=== PATIENT | male | born 2000 | race Caucasian/White ===

== ENCOUNTER 2025-02-04 18:47 | Inpatient (IN) | payer OTHER ==
[~2025-02-04] VITALS: Ht 188 cm; Wt 135.3 kg
[2025-02-04] MEDS ORDERED: ACETAMINOPHEN 650MG SUPP PR PRN (19:00)
[2025-02-04] MEDS ORDERED: VANCOMYCIN 1G PREMIX 200 ML IV ONE (19:00)
[2025-02-04] MEDS: SODIUM CHLORIDE 0.9% (SEPSIS BOLUS) IV ONE (19:08)
[2025-02-04] MEDS: PIPERACILLIN/TAZO 3.375G/50ML 50 ML IV ONE (19:09)
[2025-02-04] MEDS: NOREPINEPHRINE 8MG/250ML PMX 250 ML IV SCH (19:10)
[2025-02-04 19:15] LABS: BASOPHILS % 0.2 % (0.0-2.0); EOSINOPHILS % 0.4 % (0.0-5.0); HEMATOCRIT. 43.4 % (42.0-52.0); HEMOGLOBIN. 14.1 g/dL (14.0-18.0); LYMPHOCYTES % 24.8 % (20.0-50.0); MEAN PLATELET VOLUME 7.8 fl (7.4-10.4); MONOCYTES % 3.2 % (2.0-8.0); NEUTROPHILS % 71.4 % (40.0-76.0); PLATELET 295 x1000/uL (130-400); RED BLOOD CELL COUNT 5.23 mill/uL (4.7-6.1); RED CELL DISTRIBUTION WIDTH 15.7 % (11.6-14.6)
[2025-02-04 19:19] VITALS: PULSE 86; RESP 20; O2SAT 95
[2025-02-04 19:34] LABS: CREATININE 1.5 mg/dL (0.6-1.3); UREA NITROGEN BLOOD 14 mg/dL (9-23)
[2025-02-04 19:35] LABS: ETHANOL BLOOD < 10 mg/dL (<10)
[2025-02-04 19:36] LABS: ASPARTATE AMINOTRANSFERASE 702 IU/L (<34); BILIRUBIN DIRECT 0.1 mg/dL (<=3.0); BILIRUBIN TOTAL 0.4 mg/dL (0.1-1.0); PHOSPHORUS 7.1 mg/dL (2.5-4.9)
[2025-02-04 19:37] LABS: PROTEIN TOTAL 6.3 g/dL (6.0-8.3)
[2025-02-04 19:56] LABS: INR 1.0
[2025-02-04 20:46] VITALS: PULSE 86; RESP 22; O2SAT 98
[2025-02-04] MEDS ORDERED: NOREPINEPHRINE 32 MG in DEXT 5% WATER 218 ML IV PRN (21:15)
[2025-02-04] MEDS ORDERED: PHENYLEPHRINE 100 MG in DEXT 5% WATER 240 ML IV PRN (21:15)
[2025-02-04] MEDS: VANCOMYCIN 2GM PMX (XELLIA) 400 ML IV SCH (22:02)
[2025-02-04 22:17] VITALS: RESP 18
[2025-02-04 22:37] LABS: BG BASE EXCESS -8.2 mmol/L (-2.0-3.0); BG CARBOXYHEMOGLOBIN 0.3 % (0.5-1.5); BG DEOXYHEMOGLOBIN 0.2 % (0.0-5.0); BG FRACTION INSPIRED OXYGEN 100; BG HCO3 ACT 16.4 mmol/L (21.0-28.0); BG METHEMOGLOBIN 0.2 % (0.5-1.5); BG OXYGEN SATURATION 99.8 % (94.0-98.0); BG OXYHEMOGLOBIN 99.3 % (94.0-98.0); BG PCO2 31.9 mmHg (35.0-48.0); BG PEEP (cmH2O) 5.0 cmH2O; BG PH 7.328 (7.350-7.450); BG PO2 365.1 mmHg (83.0-108.0); BG SAMPLE SITE RIGHT RADIAL; BG TIDAL VOLUME(mL) 500.0 mL; BG TOTAL HEMOGLOBIN 16.8 g/dL (13.5-17.5); BG VENT MODE VENT - AC; BG VENT RATE 16.0 set
[2025-02-04 23:00] VITALS: BP 101/79; PULSE 115; RESP 30; TEMP 38.4
[2025-02-04 23:13] LABS: TROPONIN I HIGH SENSITIVITY 36 ng/L (3.0-53)
[2025-02-04] MEDS ORDERED: MIDAZOLAM 100MG/100ML PMX 100 ML IV PRN (23:15)
[2025-02-04] MEDS ORDERED: FENTANYL 2500MCG/250ML PMX 250 ML IV ONE (23:15)
[2025-02-04] MEDS ORDERED: IOHEXOL-350 100 ML BOTTLE ONE (23:27)
[2025-02-04 23:30] VITALS: BP 130/85; PULSE 130; RESP 28; TEMP 38.8
[2025-02-04] MEDS: ACETAMINOPHEN 650MG/20.3ML UDC NG PRN (23:42)
[2025-02-04 23:45] VITALS: BP 129/91; PULSE 121; RESP 29; TEMP 38.8
[2025-02-04] MEDS: MIDAZOLAM 100MG/100ML PMX 100 ML IV PRN (23:57)
[2025-02-04] MEDS: FENTANYL CITRATE 2,500 MCG in SODIUM CHLORIDE 0.9% 200 ML IV PRN (23:59)
[2025-02-05] VITALS (87 sets, daily range): BP systolic 109–190; BP diastolic 65–116; PULSE 101–141; RESP 13–39; TEMP 37.3–38.8644; O2SAT 78–100
[2025-02-05] MEDS: SODIUM CHLORIDE 0.9% 1,000 ML IV SCH (00:01)
[2025-02-05] MEDS: PHENOBARBITAL SODIUM 65MG/ML 1ML IV NR (01:41)
[2025-02-05] MEDS: LEVETIRACETAM 1500MG PREMIX 100 ML IV NR (01:45)
[2025-02-05] MEDS: VECURONIUM BROMIDE 10 MG/VIAL IV NR (02:11)
[2025-02-05] MEDS: PHENOBARBITAL SODIUM 130MG/ML 1ML IV NR (04:42)
[2025-02-05] MEDS: PROPOFOL 10MG/ML 100ML 100 ML IV PRN ×2 (05:00→17:18)
[2025-02-05 05:42] LABS: BASOPHILS % 0.1 % (0.0-2.0); EOSINOPHILS % 0.0 % (0.0-5.0); HEMATOCRIT. 46.2 % (42.0-52.0); HEMOGLOBIN. 14.9 g/dL (14.0-18.0); LYMPHOCYTES % 7.7 % (20.0-50.0); MEAN PLATELET VOLUME 7.9 fl (7.4-10.4); MONOCYTES % 5.4 % (2.0-8.0); NEUTROPHILS % 86.8 % (40.0-76.0); PLATELET 290 x1000/uL (130-400); RED BLOOD CELL COUNT 5.58 mill/uL (4.7-6.1); RED CELL DISTRIBUTION WIDTH 16.3 % (11.6-14.6)
[2025-02-05 05:54] LABS: CREATININE 1.2 mg/dL (0.6-1.3)
[2025-02-05 05:55] LABS: UREA NITROGEN BLOOD 10 mg/dL (9-23)
[2025-02-05] MEDS: PIPERACILLIN/TAZO 3.375G/50ML 50 ML IV SCH (07:54)
[2025-02-05] MEDS ORDERED: DEXTROSE 50% WATER 50ML SYRINGE IV PRN (08:00)
[2025-02-05] MEDS: PANTOPRAZOLE 40MG DR TABLET PO SCH (08:00)
[2025-02-05] MEDS ORDERED: METH4TAB17 PO (08:03)
[2025-02-05] MEDS ORDERED: HYDR-4009 MT (08:05)
[2025-02-05] MEDS ORDERED: CEPH500C2 PO (08:08)
[2025-02-05] MEDS ORDERED: DOCU100T PO (08:08)
[2025-02-05] MEDS ORDERED: CYCL25PO15 MT (08:08)
[2025-02-05] MEDS: BLOOD SUGAR DIAGNOSTIC STRIP TEST SCH (08:29)
[2025-02-05] MEDS: LEVETIRACETAM 1000MG PREMIX 100 ML IV SCH (08:44)
[2025-02-05] MEDS: INSULIN LISPRO 100 UNITS/ML SUBCUT SCH (08:45)
[2025-02-05 08:55] LABS: BG BASE EXCESS -4.6 mmol/L (-2.0-3.0); BG CARBOXYHEMOGLOBIN 0.6 % (0.5-1.5); BG DEOXYHEMOGLOBIN 0.6 % (0.0-5.0); BG FRACTION INSPIRED OXYGEN 70; BG HCO3 ACT 20.9 mmol/L (21.0-28.0); BG METHEMOGLOBIN 0.3 % (0.5-1.5); BG OXYGEN SATURATION 99.4 % (94.0-98.0); BG OXYHEMOGLOBIN 98.5 % (94.0-98.0); BG PCO2 40.3 mmHg (35.0-48.0); BG PEEP (cmH2O) 8.0 cmH2O; BG PH 7.333 (7.350-7.450); BG PO2 184.6 mmHg (83.0-108.0); BG SAMPLE SITE RIGHT RADIAL; BG TIDAL VOLUME(mL) 500.0 mL; BG TOTAL HEMOGLOBIN 15.2 g/dL (13.5-17.5); BG VENT MODE VENT - AC; BG VENT RATE 18.0 set
[2025-02-05] MEDS ORDERED: VANCOMYCIN 2GM PMX (XELLIA) 400 ML IV SCH (09:00)
[2025-02-05 10:07] LABS: CREATININE 1.2 mg/dL (0.6-1.3); ETHANOL BLOOD < 10 mg/dL (<10); UREA NITROGEN BLOOD 11 mg/dL (9-23)
[2025-02-05 10:09] LABS: PHOSPHORUS 3.8 mg/dL (2.5-4.9)
[2025-02-05] MEDS: VANCOMYCIN 2GM PMX (XELLIA) 400 ML IV SCH (13:04)
[2025-02-05] MEDS: HYDRALAZINE 20MG/ML VIAL IV PRN (17:19)
[2025-02-05 17:29] LABS: CLARITY URINE TURBID (CLEAR); COLOR URINE YELLOW (YELLOW); GLUCOSE URINE NEGATIVE (NEGATIVE); KETONES URINE NEGATIVE (NEGATIVE); LEUKOCYTE ESTERASE URINE NEGATIVE (NEGATIVE); NITRITE URINE NEGATIVE (NEGATIVE); OCCULT BLOOD URINE 1+ (NEGATIVE); PH URINE 5.0 (4.5-8.0); PROTEIN URINE TRACE (NEGATIVE); SPECIFIC GRAVITY URINE 1.025 (1.005-1.030); UROBILINOGEN URINE 0.2 E.U./dL (0.2-1.0)
[2025-02-05 17:39] LABS: *AMPHETAMINES SCREEN URINE NEGATIVE (NEGATIVE); *BARBITURATES SCREEN URINE PRESUMPTIVE POSITIVE (NEGATIVE); *BENZODIAZEPINES SCREEN URINE PRESUMPTIVE POSITIVE (NEGATIVE); *COCAINE SCREEN URINE NEGATIVE (NEGATIVE); CANNABINOID URINE SCREEN NEGATIVE (NEGATIVE); ECSTASY MDMA SCREEN URINE NEGATIVE (NEGATIVE); METHADONE URINE SCREEN NEGATIVE (NEGATIVE); OPIATES URINE SCREEN NEGATIVE (NEGATIVE); PHENCYCLIDINE URINE SCREEN NEGATIVE (NEGATIVE)
[2025-02-05 18:12] LABS: CREATININE 1.1 mg/dL (0.6-1.3); UREA NITROGEN BLOOD 7 mg/dL (9-23)
[2025-02-05 18:17] LABS: URIC ACID CRYSTALS URINE 2+ /lpf; WBC URINE NONE SEEN /hpf (0-2)
[2025-02-05 18:18] LABS: BACTERIA URINE NONE SEEN; RBC URINE 0-2 /hpf (0-2); SQUAMOUS EPITHELIAL CELL URINE RARE /lpf (RARE/1+)
[2025-02-05] MEDS: ACETAMINOPHEN 325MG TABLET PO PRN (18:25)
[2025-02-05] MEDS: HYDROMORPHONE HCL/PF 2MG/ML INJ IV PRN (20:40)
[2025-02-05] MEDS ORDERED: NALOXONE HCL 0.4MG/ML VIAL IV PRN (20:45)
[2025-02-05] MEDS: VANCOMYCIN 1.5GM PMX (XELLIA) 300 ML IV SCH (21:38)
[2025-02-06] VITALS (73 sets, daily range): BP systolic 136–194; BP diastolic 73–161; PULSE 95–200; RESP 16–47; TEMP 37.4–38.8; O2SAT 88–100
[2025-02-06 03:04] LABS: BASOPHILS % 0.3 % (0.0-2.0); EOSINOPHILS % 1.1 % (0.0-5.0); HEMATOCRIT. 44.8 % (42.0-52.0); HEMOGLOBIN. 14.5 g/dL (14.0-18.0); LYMPHOCYTES % 16.9 % (20.0-50.0); MEAN PLATELET VOLUME 7.3 fl (7.4-10.4); MONOCYTES % 6.8 % (2.0-8.0); NEUTROPHILS % 74.9 % (40.0-76.0); PLATELET 258 x1000/uL (130-400); RED BLOOD CELL COUNT 5.52 mill/uL (4.7-6.1); RED CELL DISTRIBUTION WIDTH 16.3 % (11.6-14.6)
[2025-02-06 03:34] LABS: CREATININE 1.0 mg/dL (0.6-1.3); TRIGLYCERIDE 468 mg/dL (0-150); UREA NITROGEN BLOOD 6 mg/dL (9-23)
[2025-02-06] MEDS: PROPOFOL 10MG/ML 100ML 100 ML IV PRN (05:02)
[2025-02-06 07:44] LABS: CREATININE 0.9 mg/dL (0.6-1.3); UREA NITROGEN BLOOD < 5 mg/dL (9-23)
[2025-02-06 07:53] LABS: BASOPHILS % 0.1 % (0.0-2.0); EOSINOPHILS % 1.0 % (0.0-5.0); HEMATOCRIT. 43.3 % (42.0-52.0); HEMOGLOBIN. 13.8 g/dL (14.0-18.0); LYMPHOCYTES % 14.2 % (20.0-50.0); MEAN PLATELET VOLUME 8.0 fl (7.4-10.4); MONOCYTES % 5.8 % (2.0-8.0); NEUTROPHILS % 78.9 % (40.0-76.0); PLATELET 281 x1000/uL (130-400); RED BLOOD CELL COUNT 5.32 mill/uL (4.7-6.1); RED CELL DISTRIBUTION WIDTH 16.2 % (11.6-14.6)
[2025-02-06] MEDS ORDERED: PROPOFOL 10MG/ML 100ML 100 ML IV SCH (08:00)
[2025-02-06] MEDS: PANTOPRAZOLE SODIUM 40 MG/VIAL IV SCH (10:13)
[2025-02-06 10:36] LABS: ASPARTATE AMINOTRANSFERASE 127 IU/L (<34); BILIRUBIN DIRECT 0.2 mg/dL (<=3.0); BILIRUBIN TOTAL 0.7 mg/dL (0.1-1.0); PROTEIN TOTAL 6.6 g/dL (6.0-8.3)
[2025-02-06] MEDS: MIDAZOLAM 100MG/100ML PMX 100 ML IV PRN (10:39)
[2025-02-06 11:40] LABS: BG BASE EXCESS -4.8 mmol/L (-2.0-3.0); BG CARBOXYHEMOGLOBIN 0.8 % (0.5-1.5); BG DEOXYHEMOGLOBIN 3.7 % (0.0-5.0); BG FRACTION INSPIRED OXYGEN 60; BG HCO3 ACT 19.6 mmol/L (21.0-28.0); BG METHEMOGLOBIN 0.2 % (0.5-1.5); BG OXYGEN SATURATION 96.3 % (94.0-98.0); BG OXYHEMOGLOBIN 95.3 % (94.0-98.0); BG PCO2 34.7 mmHg (35.0-48.0); BG PEEP (cmH2O) 8.0 cmH2O; BG PH 7.369 (7.350-7.450); BG PO2 78.7 mmHg (83.0-108.0); BG SAMPLE SITE RIGHT RADIAL; BG TIDAL VOLUME(mL) 500.0 mL; BG TOTAL HEMOGLOBIN 15.3 g/dL (13.5-17.5); BG VENT MODE VENT - AC; BG VENT RATE 18.0 set
[2025-02-06] MEDS ORDERED: LABETALOL HCL 100MG TABLET PO SCH (11:45)
[2025-02-06] MEDS: AMLODIPINE 5MG TABLET PO SCH (12:09)
[2025-02-06] MEDS ORDERED: LABETALOL 5MG/ML 4ML INJ IV SCH (12:15)
[2025-02-06] MEDS: LABETALOL 5MG/ML 4ML INJ IV PRN (12:27)
[2025-02-06] MEDS: ACETAMINOPHEN 650MG/20.3ML UDC PO SCH (15:04)
[2025-02-06] MEDS ORDERED: AMLODIPINE 5MG TABLET PO ONE (15:30)
[2025-02-06] MEDS ORDERED: HYDROMORPHONE HCL/PF 2MG/ML INJ IV PRN (15:45)
[2025-02-06] MEDS: NICARDIPINE 40MG/200ML PREMIX 200 ML IV PRN (19:43)
[2025-02-06] MEDS: HYDRALAZINE HCL 50MG TABLET PO SCH (21:28)
[2025-02-06] MEDS: IBUPROFEN 800MG TABLET PO SCH (23:41)
[2025-02-07] VITALS (79 sets, daily range): BP systolic 109–159; BP diastolic 61–113; PULSE 92–139; RESP 17–42; TEMP 36.6–38.2; O2SAT 93–100
[2025-02-07] MEDS: ROCURONIUM BROMIDE 10MG/ML VIAL 5ML IV NR (02:11)
[2025-02-07 06:09] LABS: BASOPHILS % 0.2 % (0.0-2.0); EOSINOPHILS % 0.6 % (0.0-5.0); HEMATOCRIT. 42.3 % (42.0-52.0); HEMOGLOBIN. 13.8 g/dL (14.0-18.0); LYMPHOCYTES % 10.4 % (20.0-50.0); MEAN PLATELET VOLUME 7.2 fl (7.4-10.4); MONOCYTES % 6.4 % (2.0-8.0); NEUTROPHILS % 82.4 % (40.0-76.0); PLATELET 274 x1000/uL (130-400); RED BLOOD CELL COUNT 5.18 mill/uL (4.7-6.1); RED CELL DISTRIBUTION WIDTH 15.9 % (11.6-14.6)
[2025-02-07 06:39] LABS: CREATININE 0.8 mg/dL (0.6-1.3)
[2025-02-07 06:40] LABS: UREA NITROGEN BLOOD 8 mg/dL (9-23)
[2025-02-07 09:02] LABS: BG BASE EXCESS -4.1 mmol/L (-2.0-3.0); BG CARBOXYHEMOGLOBIN 0.6 % (0.5-1.5); BG DEOXYHEMOGLOBIN 5.2 % (0.0-5.0); BG FRACTION INSPIRED OXYGEN 40; BG HCO3 ACT 20.5 mmol/L (21.0-28.0); BG METHEMOGLOBIN 0.3 % (0.5-1.5); BG OXYGEN SATURATION 94.8 % (94.0-98.0); BG OXYHEMOGLOBIN 93.9 % (94.0-98.0); BG PCO2 36.2 mmHg (35.0-48.0); BG PEEP (cmH2O) 8.0 cmH2O; BG PH 7.370 (7.350-7.450); BG PO2 71.7 mmHg (83.0-108.0); BG SAMPLE SITE RIGHT RADIAL; BG TOTAL HEMOGLOBIN 14.4 g/dL (13.5-17.5); BG VENT MODE VENT - AC
[2025-02-07] MEDS: PROPOFOL 10MG/ML 100ML 100 ML IV PRN (15:31)
[2025-02-08] VITALS (75 sets, daily range): BP systolic 106–169; BP diastolic 51–152; PULSE 89–128; RESP 16–25; TEMP 35.7–36.9; O2SAT 93–100
[2025-02-08] MEDS ORDERED: LIDOCAINE HCL 1% 10 MG/ML 10ML VIAL ONE (07:31)
[2025-02-08] MEDS: IPRATROPIUM/ALBUTEROL 0.5-3(2.5)MG/3ML NEB NEB PRN (08:11)
[2025-02-08 09:12] LABS: BG BASE EXCESS -4.3 mmol/L (-2.0-3.0); BG CARBOXYHEMOGLOBIN 0.5 % (0.5-1.5); BG DEOXYHEMOGLOBIN 3.4 % (0.0-5.0); BG FRACTION INSPIRED OXYGEN 50; BG HCO3 ACT 21.2 mmol/L (21.0-28.0); BG METHEMOGLOBIN 0.3 % (0.5-1.5); BG OXYGEN SATURATION 96.6 % (94.0-98.0); BG OXYHEMOGLOBIN 95.8 % (94.0-98.0); BG PCO2 40.8 mmHg (35.0-48.0); BG PEEP (cmH2O) 8.0 cmH2O; BG PH 7.334 (7.350-7.450); BG PO2 85.0 mmHg (83.0-108.0); BG SAMPLE SITE RIGHT RADIAL; BG TIDAL VOLUME(mL) 500.0 mL; BG TOTAL HEMOGLOBIN 13.9 g/dL (13.5-17.5); BG TOTAL RESPIRATORY RATE 22 b/min; BG VENT MODE VENT - AC; BG VENT RATE 18.0 set
[2025-02-08 10:13] LABS: BASOPHILS % 0.4 % (0.0-2.0); EOSINOPHILS % 2.3 % (0.0-5.0); HEMATOCRIT. 39.4 % (42.0-52.0); HEMOGLOBIN. 12.8 g/dL (14.0-18.0); LYMPHOCYTES % 19.4 % (20.0-50.0); MEAN PLATELET VOLUME 7.8 fl (7.4-10.4); MONOCYTES % 6.3 % (2.0-8.0); NEUTROPHILS % 71.6 % (40.0-76.0); PLATELET 271 x1000/uL (130-400); RED BLOOD CELL COUNT 4.85 mill/uL (4.7-6.1); RED CELL DISTRIBUTION WIDTH 15.8 % (11.6-14.6)
[2025-02-08 10:16] LABS: CREATININE 0.7 mg/dL (0.6-1.3)
[2025-02-08 10:17] LABS: UREA NITROGEN BLOOD 8 mg/dL (9-23)
[2025-02-08] MEDS ORDERED: PROPOFOL 10MG/ML 100ML 100 ML IV PRN (17:15)
[2025-02-08] MEDS: PROPOFOL 10MG/ML 100ML 100 ML IV PRN (17:22)
[2025-02-09] VITALS (101 sets, daily range): BP systolic 104–202; BP diastolic 40–116; PULSE 87–125; RESP 15–33; TEMP 98–100.8; O2SAT 90–99
[2025-02-09 06:46] LABS: BASOPHILS % 0.5 % (0.0-2.0); EOSINOPHILS % 2.2 % (0.0-5.0); HEMATOCRIT. 38.9 % (42.0-52.0); HEMOGLOBIN. 12.7 g/dL (14.0-18.0); LYMPHOCYTES % 17.1 % (20.0-50.0); MEAN PLATELET VOLUME 7.6 fl (7.4-10.4); MONOCYTES % 6.4 % (2.0-8.0); NEUTROPHILS % 73.8 % (40.0-76.0); PLATELET 297 x1000/uL (130-400); RED BLOOD CELL COUNT 4.77 mill/uL (4.7-6.1); RED CELL DISTRIBUTION WIDTH 15.6 % (11.6-14.6)
[2025-02-09 07:07] LABS: CREATININE 0.9 mg/dL (0.6-1.3); TRIGLYCERIDE 534 mg/dL (0-150); UREA NITROGEN BLOOD 7 mg/dL (9-23)
[2025-02-09 10:14] LABS: BG BASE EXCESS -5.2 mmol/L (-2.0-3.0); BG CARBOXYHEMOGLOBIN 0.9 % (0.5-1.5); BG DEOXYHEMOGLOBIN 6.6 % (0.0-5.0); BG FRACTION INSPIRED OXYGEN 40; BG HCO3 ACT 19.5 mmol/L (21.0-28.0); BG METHEMOGLOBIN 0.0 % (0.5-1.5); BG OXYGEN SATURATION 93.3 % (94.0-98.0); BG OXYHEMOGLOBIN 92.5 % (94.0-98.0); BG PCO2 35.7 mmHg (35.0-48.0); BG PEEP (cmH2O) 8.0 cmH2O; BG PH 7.356 (7.350-7.450); BG PO2 64.7 mmHg (83.0-108.0); BG SAMPLE SITE RH; BG TIDAL VOLUME(mL) 500.0 mL; BG TOTAL HEMOGLOBIN 14.4 g/dL (13.5-17.5); BG VENT MODE VENT - AC; BG VENT RATE 18.0 set
[2025-02-09] MEDS: KCL 20MEQ/100ML PREMIX 100 ML IV NR (11:14)
[2025-02-09] MEDS: POTASSIUM PHOSPHATE 30 MMOL in SODIUM CHLORIDE 0.9% 490 ML IV NR (12:59)
[2025-02-09] MEDS: FENTANYL 2500MCG/250ML PMX 250 ML IV PRN (17:58)
[2025-02-09] MEDS: PROPOFOL 10MG/ML 100ML 100 ML IV SCH (17:58)
[2025-02-09] MEDS: VANCOMYCIN 1.5GM/250ML IV SCH (22:29)
[2025-02-09] MEDS: MIDAZOLAM 100MG/100ML PREMIX IV PRN (22:29)
[2025-02-10] VITALS (107 sets, daily range): BP systolic 96–181; BP diastolic 46–110; PULSE 86–129; RESP 13–31; TEMP 36.8–37.2; O2SAT 93–100
[2025-02-10] MEDS: FENTANYL 2500MCG/250ML PMX 250 ML IV PRN (04:22)
[2025-02-10 05:39] LABS: PLATELET 309 x1000/uL (130-400); RED BLOOD CELL COUNT 4.66 mill/uL (4.7-6.1); RED CELL DISTRIBUTION WIDTH 16.1 % (11.6-14.6)
[2025-02-10 06:06] LABS: CREATININE 0.8 mg/dL (0.6-1.3); TRIGLYCERIDE 446 mg/dL (0-150); UREA NITROGEN BLOOD 8 mg/dL (9-23)
[2025-02-10 06:08] LABS: PHOSPHORUS 3.7 mg/dL (2.5-4.9)
[2025-02-10] MEDS: POTASSIUM CHLORIDE 20MEQ/PACKET PO SCH (08:51)
[2025-02-10] MEDS: VANCOMYCIN 1.5GM/250ML IV SCH (10:59)
[2025-02-10] MEDS ORDERED: VANCOMYCIN 1.5GM PMX (XELLIA) 300 ML IV SCH (11:00)
[2025-02-10] MEDS: PROPOFOL 10MG/ML 100ML 100 ML IV PRN (11:05)
[2025-02-10] MEDS: VANCOMYCIN 1.5GM PMX (XELLIA) 300 ML IV SCH (16:17)
[2025-02-10] MEDS: BLOOD SUGAR DIAGNOSTIC STRIP TEST SCH (23:57)
[2025-02-10] MEDS: INSULIN LISPRO 100 UNITS/ML SUBCUT SCH (23:57)
[2025-02-11] VITALS (75 sets, daily range): BP systolic 115–182; BP diastolic 55–116; PULSE 84–138; RESP 12–32; TEMP 36.2–37.7; O2SAT 91–100
[2025-02-11 05:46] LABS: BASOPHILS % 0.3 % (0.0-2.0); EOSINOPHILS % 1.7 % (0.0-5.0); HEMATOCRIT. 39.9 % (42.0-52.0); HEMOGLOBIN. 12.8 g/dL (14.0-18.0); LYMPHOCYTES % 14.7 % (20.0-50.0); MEAN PLATELET VOLUME 7.2 fl (7.4-10.4); MONOCYTES % 5.8 % (2.0-8.0); NEUTROPHILS % 77.5 % (40.0-76.0); PLATELET 357 x1000/uL (130-400); RED BLOOD CELL COUNT 4.91 mill/uL (4.7-6.1); RED CELL DISTRIBUTION WIDTH 15.7 % (11.6-14.6)
[2025-02-11] MEDS ORDERED: DIAZEPAM 5 MG/ML 2ML SYR IM NR (06:00)
[2025-02-11] MEDS: DIAZEPAM 5 MG/ML 2ML SYR IV NR (06:06)
[2025-02-11 06:22] LABS: CREATININE 0.7 mg/dL (0.6-1.3); TRIGLYCERIDE 526 mg/dL (0-150); UREA NITROGEN BLOOD 10 mg/dL (9-23)
[2025-02-11 09:14] LABS: BG BASE EXCESS -0.9 mmol/L (-2.0-3.0); BG CARBOXYHEMOGLOBIN 0.9 % (0.5-1.5); BG DEOXYHEMOGLOBIN 4.0 % (0.0-5.0); BG FRACTION INSPIRED OXYGEN 40; BG HCO3 ACT 25.4 mmol/L (21.0-28.0); BG METHEMOGLOBIN 0.3 % (0.5-1.5); BG OXYGEN SATURATION 96.0 % (94.0-98.0); BG OXYHEMOGLOBIN 94.8 % (94.0-98.0); BG PCO2 48.4 mmHg (35.0-48.0); BG PEEP (cmH2O) 5.0 cmH2O; BG PH 7.337 (7.350-7.450); BG PO2 84.7 mmHg (83.0-108.0); BG SAMPLE SITE RIGHT RADIAL; BG TIDAL VOLUME(mL) 500.0 mL; BG TOTAL HEMOGLOBIN 13.1 g/dL (13.5-17.5); BG VENT MODE VENT - AC; BG VENT RATE 18.0 set
[2025-02-11] MEDS: VANCOMYCIN 1.5GM PMX (XELLIA) 300 ML IV SCH (09:33)
[2025-02-11] MEDS: PROPOFOL 10MG/ML 100ML 100 ML IV PRN (10:10)
[2025-02-11] MEDS: CEFEPIME 2GM PREMIX 100ML IV SCH (17:47)
[2025-02-11] MEDS ORDERED: CEFEPIME 2GM IN DEXT 5% 100ML IV SCH (22:00)
[2025-02-12] VITALS (77 sets, daily range): BP systolic 116–175; BP diastolic 62–113; PULSE 85–123; RESP 5–29; TEMP 37–37.6; O2SAT 94–100
[2025-02-12 06:04] LABS: HEMATOCRIT. 40.2 % (42.0-52.0); HEMOGLOBIN. 13.1 g/dL (14.0-18.0); MEAN PLATELET VOLUME 7.0 fl (7.4-10.4); PLATELET 339 x1000/uL (130-400); RED BLOOD CELL COUNT 4.89 mill/uL (4.7-6.1); RED CELL DISTRIBUTION WIDTH 15.9 % (11.6-14.6)
[2025-02-12] MEDS: PROPOFOL 10MG/ML 100ML 100 ML IV PRN (10:10)
[2025-02-12 18:53] LABS: EOSINOPHILS % MANUAL 7.0 % (0.0-5.0); LYMPHOCYTES % MANUAL 15.0 % (20.0-50.0); MONOCYTES % MANUAL 13.0 % (2.0-8.0); NEUTROPHILS % MANUAL 65.0 % (45.0-75.0); PLATELET ESTIMATE NORMAL
[2025-02-13] VITALS (94 sets, daily range): BP systolic 114–176; BP diastolic 57–123; PULSE 86–134; RESP 13–25; TEMP 37–37.7; O2SAT 91–100
[2025-02-13 07:20] LABS: PLATELET 377 x1000/uL (130-400); RED BLOOD CELL COUNT 4.68 mill/uL (4.7-6.1); RED CELL DISTRIBUTION WIDTH 15.7 % (11.6-14.6)
[2025-02-13 07:39] LABS: CREATININE 0.7 mg/dL (0.6-1.3); TRIGLYCERIDE 402 mg/dL (0-150); UREA NITROGEN BLOOD 9 mg/dL (9-23)
[2025-02-13 07:41] LABS: PHOSPHORUS 3.3 mg/dL (2.5-4.9)
[2025-02-13] MEDS: PROPOFOL 10MG/ML 100ML 100 ML IV PRN (09:36)
[2025-02-13] MEDS: METOCLOPRAMIDE HCL 10MG/2ML VIAL IV SCH (13:45)
[2025-02-13] MEDS: NA PHOS,M-B/NA PHOS,DI-BA ENEMA 118ML PR SCH (16:01)
[2025-02-14] VITALS (104 sets, daily range): BP systolic 118–169; BP diastolic 61–109; PULSE 87–128; RESP 15–22; TEMP 37.3–37.7; O2SAT 91–99
[2025-02-14 07:13] LABS: CREATININE 0.8 mg/dL (0.6-1.3)
[2025-02-14 07:14] LABS: TRIGLYCERIDE 386 mg/dL (0-150); UREA NITROGEN BLOOD 10 mg/dL (9-23)
[2025-02-14 07:16] LABS: PHOSPHORUS 3.9 mg/dL (2.5-4.9); PLATELET 382 x1000/uL (130-400); RED BLOOD CELL COUNT 4.70 mill/uL (4.7-6.1); RED CELL DISTRIBUTION WIDTH 15.9 % (11.6-14.6)
[2025-02-14] MEDS: POTASSIUM CHLORIDE 20MEQ/PACKET NG SCH (08:22)
[2025-02-14] MEDS: PROPOFOL 10MG/ML 100ML 100 ML IV PRN ×2 (10:50→12:59)
[2025-02-15] VITALS (60 sets, daily range): BP systolic 116–169; BP diastolic 68–115; PULSE 88–118; RESP 0–24; TEMP 37.4–37.6; O2SAT 91–98
[2025-02-15] MEDS: MIDAZOLAM 100MG/100ML PMX 100 ML IV PRN (04:55)
[2025-02-15 06:23] LABS: CREATININE 0.8 mg/dL (0.6-1.3)
[2025-02-15 06:24] LABS: TRIGLYCERIDE 517 mg/dL (0-150); UREA NITROGEN BLOOD 10 mg/dL (9-23)
[2025-02-15] MEDS: FENTANYL 2500MCG/250ML PMX 250 ML IV PRN (06:52)
[2025-02-15] MEDS ORDERED: LACOSAMIDE 100MG/10ML ORAL SOLN GT SCH (09:00)
[2025-02-15] MEDS: SODIUM CHLORIDE 0.9% IV SCH (10:07)
[2025-02-15] MEDS: LACOSAMIDE IV SCH (10:07)
[2025-02-15 11:25] LABS: BG BASE EXCESS 1.8 mmol/L (-2.0-3.0); BG CARBOXYHEMOGLOBIN 1.4 % (0.5-1.5); BG DEOXYHEMOGLOBIN 3.8 % (0.0-5.0); BG FRACTION INSPIRED OXYGEN 40; BG HCO3 ACT 27.4 mmol/L (21.0-28.0); BG METHEMOGLOBIN 0.2 % (0.5-1.5); BG OXYGEN SATURATION 96.1 % (94.0-98.0); BG OXYHEMOGLOBIN 94.6 % (94.0-98.0); BG PCO2 46.9 mmHg (35.0-48.0); BG PEEP (cmH2O) 5.0 cmH2O; BG PH 7.384 (7.350-7.450); BG PO2 85.3 mmHg (83.0-108.0); BG SAMPLE SITE RIGHT RADIAL; BG TIDAL VOLUME(mL) 500.0 mL; BG TOTAL HEMOGLOBIN 13.2 g/dL (13.5-17.5); BG VENT MODE VENT - AC; BG VENT RATE 18.0 set
[2025-02-15] MEDS: PROPOFOL 10MG/ML 100ML 100 ML IV PRN (12:33)
[2025-02-15] MEDS ORDERED: CEFE1FRO2 IV (16:45)
[2025-02-15] MEDS ORDERED: LACO200T2 MT (16:45)
[2025-02-15] MEDS ORDERED: HYDR50TA39 PO (16:45)
[2025-02-15] MEDS ORDERED: LEVE1000 MT (16:45)
[2025-02-15] MEDS ORDERED: AMLO5TAB88 PO (16:45)
[2025-02-15] MEDS ORDERED: LACO10SO12 GT (16:45)
[2025-02-17] MEDS ORDERED: LACOSAMIDE 100MG/10ML ORAL SOLN GT SCH (09:00)
== END 2025-02-15 17:40 | disposition short-term general hospital (02) | DRG 870 ==
LOC: ER 18:47 → CVICU 21:56 → EDBEDREQ 22:02 → EDBEDREQTM 22:02 → ENRESERV 22:07
PROVIDERS: ADMIT Internal Medicine; ATTEND Internal Medicine
PROC: 5A1955Z Respiratory Ventilation, Greater than 96 Consecutive Hours (ICD-10-PCS; principal; 2025-02-04)
PROC: 02HV33Z Insertion of Infusion Device into Superior Vena Cava, Percutaneous Approach (ICD-10-PCS; 2025-02-05)
PROC: B548ZZA Ultrasonography of Superior Vena Cava, Guidance (ICD-10-PCS; 2025-02-05)
PROC: 4A00X4Z Measurement of Central Nervous Electrical Activity, External Approach (ICD-10-PCS; 2025-02-06)
PROC: 02HV33Z Insertion of Infusion Device into Superior Vena Cava, Percutaneous Approach (ICD-10-PCS; 2025-02-08)
PROC: B548ZZA Ultrasonography of Superior Vena Cava, Guidance (ICD-10-PCS; 2025-02-08)
PROC: 4A00X4Z Measurement of Central Nervous Electrical Activity, External Approach (ICD-10-PCS; 2025-02-09)
DX: A41.9 Sepsis, unspecified organism (principal); I46.9 Cardiac arrest, cause unspecified; J96.01 Acute respiratory failure with hypoxia; N17.0 Acute kidney failure with tubular necrosis; R65.21 Severe sepsis with septic shock; K72.00 Acute and subacute hepatic failure without coma; J69.0 Pneumonitis due to inhalation of food and vomit; G92.8 Other toxic encephalopathy; E87.20 Acidosis, unspecified; M62.82 Rhabdomyolysis; G93.1 Anoxic brain damage, not elsewhere classified; Z68.41 Body mass index [BMI] 40.0-44.9, adult; R33.9 Retention of urine, unspecified; E11.65 Type 2 diabetes mellitus with hyperglycemia; E66.01 Morbid (severe) obesity due to excess calories; E78.1 Pure hyperglyceridemia; I10 Essential (primary) hypertension; E83.51 Hypocalcemia; G40.909 Epilepsy, unspecified, not intractable, without status epilepticus; G89.29 Other chronic pain; R74.8 Abnormal levels of other serum enzymes; Z68.38 Body mass index [BMI] 38.0-38.9, adult
CPT/HCPCS: 31720; 36415; 36573; 36600; 70551; 71045; 71275; 74174; 76770; 80048; 80076; 80202; 80305; 80320; 80339; 81003; 82140; 82375; 82550; 82803; 82805; 82962; 83036; 83605; 83735; 83880; 83930; 84100; 84145; 84443; 84478; 84484; 85025; 85027; 86850; 86900; 87070; 93005; 93306; 94002; 94003; 94070; 94640; 94664; 95816; 98960; 99291; A4606; C1725; J0360; J0692; J1171; J1815; J1953; J2003; J2060; J2250; J2470; J2543; J2560; J2704; J2765; J3010; J3373; J3480; J3490; J7040; J7050; Q9967; G0480